=== PATIENT | male | born 1970 | race African-American/Black ===

== ENCOUNTER 2019-07-27 10:03 | Emergency (ER) | payer OTHER ==
[2019-07-28 14:00] LABS: SARS-CoV-2 MS2 Positive; SARS-CoV-2 N Gene Positive; SARS-CoV-2 S Gene Positive; SARS-CoV-2 orf1ab Positive
== END 2019-07-27 11:15 | disposition home or self-care (01) ==
LOC: NAV ERS 10:03
DX: U07.1 COVID-19 (principal)
CPT/HCPCS: 87635; 99283; U0003